=== PATIENT | female | born 1990 | race Caucasian/White ===

== ENCOUNTER 2017-05-09 08:53 | Emergency (ER) | payer BC ==
[~2017-05-09] VITALS: Ht 160 cm; Wt 49.6 kg
[~2017-05-09 08:53] MED LIST: IBUP800 PO; PRENTAB72 PO
[2017-05-09 08:59] VITALS: BP 124/79; PULSE 108; RESP 16; TEMP 98.2; O2SAT 97
[2017-05-09] MEDS ORDERED: BIRTH CONTROL (09:09)
--- NOTE | 2017-05-09 09:14 | PD ---
HPI Chief Complaint: Manager Safe Problem/Complaint Time Seen by Provider: 09:06 Travel History International Travel<30 days: No Contact w/Intl Traveler<30days: No Traveled to known affect area: No History of Present Illness HPI This 26-year-old female complaining of vaginal bleeding. She says she been bleeding for the past 3 weeks she has passed some clots. She had some nausea and vomiting a couple of days ago as did her daughter and . She is on control pills she believes Loestrin. At the age of 11 and 12 she had a laparoscopy for endometriosis which was reportedly negative. She does not think she is . She has some lower abdominal cramps. She says she used 5 pads last night. PFSH Past Medical History Anxiety: Yes Depression: Yes Cancer: No Cardiovascular Problems: No Diabetes: No Diminished Hearing: No Endocrine: No Glaucoma: No Genitourinary: No Hepatitis: No Hiatal Hernia: No Hypertension: No Implanted Vascular Access Dvce: Yes Musculoskeletal: No Neurologic: No Psychiatric: Yes (eating disorder) Reproductive: Yes (ENDOMETRIOUS) Respiratory: No Immunizations Current: Yes Thyroid Disease: No ?: Not Past Surgical History Abdominal Surgery: Yes (LAP EXP 2007) Body Medical Devices: PLATE AND SCEWS TO LEFT WRIST Cardiac Surgery: No Ear Surgery: No Endocrine Surgery: No Eye Surgery: No Genitourinary Surgery: No Gynecologic Surgery: No Oral Surgery: No Pacemaker: No Thoracic Surgery: No Other Surgery: Yes (R WRIST SURGERY) Social History Alcohol Use: No Tobacco Use: No Substance Use: No (DENIES) Allergies-Medications (Allergen,Severity, Reaction): Coded Allergies: Morphine (Verified Allergy, Severe, 05/09/17) Reported Meds & Prescriptions Reported Meds & Active Scripts Active Review of Systems General / Constitutional: No: Fever, Chills Eyes: No: Diploplia HENT: No: Headaches, Vertigo Cardiovascular: No: Chest Pain or Discomfort, Palpitations Respiratory: No: Cough, Shortness of Breath Gastrointestinal: No: Nausea, Vomiting Genitourinary: Positive: Pelvic Pain, Menorrhagia Musculoskeletal: No: Myalgias, Arthralgias Skin: No Rash, No Itching Hematologic/Lymphatic: No: Easy Bruising Physical Exam Narrative GENERAL: Well-developed female SKIN: Focused skin assessment warm/dry. HEAD: Atraumatic. Normocephalic. EYES: Pupils equal and round. No scleral icterus. No injection or drainage. ENT: No nasal bleeding or discharge. Mucous membranes pink and moist. NECK: Trachea midline. No JVD. CARDIOVASCULAR: Regular rate and rhythm. No murmur appreciated. RESPIRATORY: No accessory muscle use. Clear to auscultation. Breath sounds equal bilaterally. GASTROINTESTINAL: Abdomen soft, non-tender, nondistended. Hepatic and splenic margins not palpable. Pelvic: Os is closed. No active bleeding noted at time of exam. There is some dried blood in the vaginal vault Uterus not palpably enlarged. No adnexal masses MUSCULOSKELETAL: No obvious deformities. No clubbing. No cyanosis. No edema. NEUROLOGICAL: Awake and alert. No obvious cranial nerve deficits. Motor grossly within normal limits. Normal speech. PSYCHIATRIC: Appropriate mood and affect; insight and judgment normal. Data Data Last Documented VS Vital Signs Date Time Temp Pulse Resp B/P Pulse Ox O2 Delivery O2 Flow Rate FiO2 05/09/17 08:59 98.2 108 16 124/79 97 Orders Complete Blood Count With Diff (05/09/17 09:11) Urinalysis - C+S If Indicated (05/09/17 09:11) Ed Urine Pregnancytest Poc (05/09/17 09:11) Urine Culture (05/09/17 09:55) Labs Laboratory Tests Test 05/09/17 05/09/17 09:20 09:55 White Blood Count 3.5 TH/MM3 Red Blood Count 3.94 MIL/MM3 Hemoglobin 12.5 GM/DL Hematocrit 37.5 % Mean Corpuscular Volume 95.2 FL Mean Corpuscular Hemoglobin 31.9 PG Mean Corpuscular Hemoglobin 33.5 % Concent Red Cell Distribution Width 14.3 % Platelet Count 172 TH/MM3 Mean Platelet Volume 7.5 FL Neutrophils (%) (Auto) 41.7 % Lymphocytes (%) (Auto) 38.5 % Monocytes (%) (Auto) 13.7 % Eosinophils (%) (Auto) 5.1 % Basophils (%) (Auto) 1.0 % Neutrophils # (Auto) 1.5 TH/MM3 Lymphocytes # (Auto) 1.3 TH/MM3 Monocytes # (Auto) 0.5 TH/MM3 Eosinophils # (Auto) 0.2 TH/MM3 Basophils # (Auto) 0.0 TH/MM3 CBC Comment DIFF FINAL Differential Comment Urine Collection Type CLEAN CATCH Urine Color RED Urine Turbidity MARKED Urine pH 6.0 Urine Specific [place] 1.028 Urine Protein 300 OR GREATER mg/dL Urine Glucose (UA) NEG mg/dL Urine Ketones NEG mg/dL Urine Occult Blood LARGE Urine Nitrite NEG Urine Bilirubin NEG Urine Leukocyte Esterase NEG Urine RBC INNUM /hpf Urine WBC 20-24 /hpf Urine Squamous Epithelial 6-8 /hpf Cells Microscopic Urinalysis Comment CULTURE INDICATED Urine Collection Time 09:55 MDM Medical Decision Making Medical Screen Exam Complete: Yes Emergency Medical Condition: Yes Medical Record Reviewed: Yes Differential Diagnosis Differential includes threatened AB, breakthrough bleeding, menorrhagia Narrative Course Hemoglobin is 12.5. Urinalysis shows innumerable red cells which may be from the menstrual bleeding. There are 20-24 white cells which may represent UTI. test is negative. She is having some lower abdominal cramping be put on Macrobid. She is to follow-up with Dr. Cedeño regarding her control bleeding Diagnosis Primary Impression: Menorrhagia Qualified Code: N92.4 - Excessive bleeding in premenopausal period Additional Impression: UTI (urinary tract infection) Scripts Nitrofurantoin Monohydrate Macrocrystals (Macrobid)100 Mg [id number] Mg PO BID 7 Days Ref 0 Prov:John Hdez MD 05/09/17 Disposition: 01 DISCHARGE HOME Condition: Stable John Hdez MD May 09, 2017 09:14
[2017-05-09 09:35] LABS: AUTOMATED NEUTROPHIL # 1.5 TH/MM3 (1.8-7.7); EOSINOPHIL # 0.2 TH/MM3 (0-0.4); EOSINOPHIL % 5.1 % (0.0-4.0); HEMATOCRIT 37.5 % (35.0-46.0); HEMO FLAGS DIFF FINAL; LYMPH % 38.5 % (9.0-44.0); LYMPHOCYTE # 1.3 TH/MM3 (1.0-4.8); MEAN CELL VOLUME 95.2 FL (80.0-100.0); MEAN CORPUSCULAR HEMOGLOBIN 31.9 PG (27.0-34.0); MEAN CORPUSCULAR HGB CONC 33.5 % (32.0-36.0); MONO % 13.7 % (0.0-8.0); NEUT % 41.7 % (16.0-70.0); PLATELET COUNT 172 TH/MM3 (150-450); RED BLOOD COUNT 3.94 MIL/MM3 (4.00-5.30); RED CELL DISTRIBUTION WIDTH 14.3 % (11.6-17.2); WHITE BLOOD COUNT 3.5 TH/MM3 (4.0-11.0)
[2017-05-09 10:08] LABS: BLOOD, URINE LARGE (NEG); GLUCOSE,URINE NEG (NEG); KETONE, URINE NEG (NEG); NITRITE,URINE NEG (NEG)
[2017-05-09 10:12] LABS: METHOD OF COLLECTION CLEAN CATCH; URINE COLOR RED (YELLW/STRAW)
[2017-05-09 10:13] LABS: RBC, URINE INNUM /hpf (0-3)
[2017-05-09 10:14] LABS: COMMENT (UR) CULTURE INDICATED; CULTURE IF INDICATED CULTURE INDICATED
[2017-05-09] MEDS ORDERED: MACR100C2 PO (10:34)
== END 2017-05-09 10:58 | disposition home or self-care (01) ==
LOC: PHED 08:53
DX: N92.0 Excessive and frequent menstruation with regular cycle (principal); N39.0 Urinary tract infection, site not specified
CPT/HCPCS: 81001; 84703; 85025; 87086; 99283

== ENCOUNTER 2017-08-31 09:37 | Emergency (ER) | payer OTHER, BC ==
[~2017-08-31] VITALS: Ht 162.6 cm; Wt 54.0 kg
[~2017-08-31 09:37] MED LIST changes: +BIRTH CONTROL; -IBUP800 PO; +MACR100C2 PO; -PRENTAB72 PO
[2017-08-31 09:43] VITALS: BP 104/76; PULSE 117; RESP 16; TEMP 98.2; O2SAT 100
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
[2017-08-31] MEDS ORDERED: ACETAMINOPHEN/HYDROcodone 325 MG/5 MG TAB PO ONE (10:30)
[2017-08-31 11:09] VITALS: BP 124/70; PULSE 97; RESP 16; O2SAT 100
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
[2017-08-31 11:57] VITALS: BP 111/71; PULSE 97; RESP 16; O2SAT 100
[2017-08-31] MEDS ORDERED: MOBI15TA PO (12:06)
[2017-08-31] MEDS ORDERED: ROBA750T PO (12:06)
[2017-08-31 12:09] VITALS: RESP 16
== END 2017-08-31 12:25 | disposition home or self-care (01) ==
LOC: PHED 09:37
DX: S20.212A Contusion of left front wall of thorax, initial encounter (principal); S29.019A Strain of muscle and tendon of unspecified wall of thorax, initial encounter; S39.012A Strain of muscle, fascia and tendon of lower back, initial encounter; V89.2XXA Person injured in unspecified motor-vehicle accident, traffic, initial encounter
CPT/HCPCS: 71101; 72072; 72100; 99284